=== PATIENT | male | born 1980 | race Caucasian/White ===

== ENCOUNTER 2018-02-10 08:22 | Emergency (ER) | payer MEDICAID ==
[~2018-02-10] VITALS: Ht 177.8 cm; Wt 93.0 kg
[2018-02-10 08:25] VITALS: BP 152/90; PULSE 82; RESP 16; TEMP 97.6; O2SAT 98
[2018-02-10] MEDS ORDERED: PERM5CRE11 TOPICAL (09:17)
--- NOTE | 2018-02-10 09:18 | PD ---
HPI Chief Complaint: Skin Problem Time Seen by Provider: 09:04 Travel History International Travel<30 days: No Contact w/Intl Traveler<30days: No Traveled to known affect area: No History of Present Illness HPI 37-year-old male here with pruritic rash to his trunk and extremities 2 weeks. His children were recently treated for scabies. He reports his rash looks similar to theirs. He denies fever chills. He reports the rash is spreading over the last 2 weeks. He reports intense itching worse at night. No other symptoms. Symptom severity is moderate. No alleviating factors. PFSH Past Medical History Medical History: Denies Significant Hx Diminished Hearing: No Tetanus Vaccination: < 5 Years Influenza Vaccination: No Past Surgical History Surgical History: No Previous Surgery Social History Alcohol Use: No Tobacco Use: Yes Substance Use: No Allergies-Medications (Allergen,Severity, Reaction): Coded Allergies: No Known Allergies (Verified Allergy, Unknown, 02/10/18) Reported Meds & Prescriptions Reported Meds & Active Scripts Active No Active Prescriptions or Reported Medications Review of Systems Except as stated in HPI: all other systems reviewed are Neg General / Constitutional: No: Fever Eyes: No: Visual changes HENT: No: Headaches Cardiovascular: No: Chest Pain or Discomfort Respiratory: No: Shortness of Breath Gastrointestinal: No: Abdominal Pain Skin: Positive Rash Physical Exam Narrative GENERAL: Alert and well-appearing 37-year-old male SKIN: Warm and dry. Rash noted to the webs of the fingers and trunk primarily around the waistband. Rash is consistent with scabies. HEAD: Normocephalic. EYES: No injection or drainage. NECK: Supple CARDIOVASCULAR: Regular rate and rhythm RESPIRATORY: Breath sounds equal bilaterally. No accessory muscle use. GASTROINTESTINAL: Abdomen soft, non-tender, nondistended. MUSCULOSKELETAL: No cyanosis, or edema. BACK: No CVA tenderness. Data Data Last Documented VS Vital Signs Date Time Temp Pulse Resp B/P (MAP) Pulse Ox O2 Delivery O2 Flow Rate FiO2 02/10/18 08:25 97.6 82 16 152/90 (110) 98 MDM Medical Decision Making Medical Screen Exam Complete: Yes Emergency Medical Condition: Yes Differential Diagnosis Scabies, contact dermatitis, other unspecified rash Narrative Course 37-year-old male here with a pruritic rash and exposure to scabies. He is nontoxic appearing. She will be treated with Elimite. Diagnosis Primary Impression: Rash and nonspecific skin eruption Referrals: [facility] Additional Instructions: Apply Elimite cream and leave in place for 8-12 hours overnight and then shower. Wash all linens, towels, clothing Scripts Permethrin Topical (Elimite Topical) 5% Cream 1 APPLIC TOPICAL ONCE for Scabies, #1 TUBE 0 Refills Prov: Loida Patetrson 02/10/18 Disposition: 01 DISCHARGE HOME Condition: Stable Loida Patterson Feb 10, 2018 09:18
== END 2018-02-10 09:40 | disposition home or self-care (01) ==
LOC: PHED 08:22
DX: R21 Rash and other nonspecific skin eruption (principal); Z20.7 Contact with and (suspected) exposure to pediculosis, acariasis and other infestations; Z72.0 Tobacco use
CPT/HCPCS: 99283